=== PATIENT | male | born 1970 | race American Indian/Alaskan Native ===

== ENCOUNTER 2017-03-26 15:50 | Emergency (ER) | payer MEDICARE ==
[2017-03-26 18:01] LABS: Anion Gap 15 mmol/L; BUN/Creatinine Ratio 8.75; Blood Urea Nitrogen 7 mg/dL (9-20); Calcium 8.9 mg/dL (8.4-10.2); Carbon Dioxide 31 mmol/L (22-30); Chloride 95.1 mmol/L (98-107); Glucose 126 mg/dL (75-100); Potassium 3.2 mmol/L (3.6-5.0); Sodium 138 mmol/L (137-145)
[2017-03-26 19:48] LABS: Basophils % (Auto) 0.6 % (0.0-1.8); Eosinophils % (Auto) 0.3 % (0.0-4.3); Hemoglobin 14.7 gm/dl (11.8-15.2); Mean Corpuscular HGB Conc 33 % (32-34); Mean Corpuscular Hemoglobin 30 pg (28-32); Mean Corpuscular Volume 90 fl (84-94); Platelet Count 218 K/mm3 (140-440); Red Blood Count 4.88 M/mm3 (3.65-5.03); Red Cell Distribution Width 13.1 % (13.2-15.2); White Blood Count 10.5 K/mm3 (4.5-11.0)
[2017-03-26 22:17] VITALS: BP 133/72
[2017-03-26] MEDS ORDERED: K-DUR PO ONE (22:17)
[2017-03-26] MEDS ORDERED: DUONEB 0.5 MG-3 MG/3 ML SOLN IH ONE (22:31)
--- NOTE | 2017-03-26 22:36 | Emergency Department Report ---
HPI - General Chief Complaint: Dyspnea/Respdistress Time Seen by Provider: 03/26/17 22:16 - HPI HPI: This is a 46-year-old Afro-Stateless male who [facility] with complaints of increased fatigue, and ability to sleep well at night, falling asleep during "class" and possibly some wheezing. The patient is currently being seen [facility] the [facility] for his schizoaffective disorder. He says that his roommates have been telling him that he is snoring very loudly and having moments where he appears to have apnea. The nurse practitioner evaluated him today and felt that he sounded like he had some wheezing. Occasionally he does feel as if he has some wheezing or shortness of breath but denies any respiratory distress, chest pain, fever, back pain. He admits to having a sleep study done in the recent past that was positive for sleep apnea and the patient was started on either a CPAP or BiPAP machine. He also admits to noncompliance with using this machine at night to sleep. ED Past Medical Hx - Past Medical History Previous Medical History?: No - Surgical History Past Surgical History?: No - Social History Smoking Status: Never Smoker Substance Use Type: None - Medications Home Medications: Home Medications Medication Instructions Recorded Confirmed Last Taken Type ALBUTEROL Inhaler [ProAir HFA 2 puff IH QID PRN #1 inhalation 03/26/17 Unknown Rx Inhaler] Loratadine/Pseudoephedrine 1 tab PO DAILY #20 tablet 03/26/17 Unknown Rx [Claritin-D 24Hr] ED Review of Systems ROS: Stated complaint: DYSPNEA/DIFFICULTY STAYING AWAKE Other details as noted in HPI Comment: All other systems reviewed and negative Constitutional: other (fatigue). denies: chills, fever Eyes: denies: eye pain, eye discharge, vision change ENT: denies: ear pain, throat pain Respiratory: shortness of breath. denies: cough Cardiovascular: denies: chest pain, palpitations Gastrointestinal: denies: abdominal pain, nausea, diarrhea Genitourinary: denies: urgency, dysuria Musculoskeletal: denies: back pain, joint swelling, arthralgia Skin: denies: rash, lesions Neurological: denies: headache, weakness, paresthesias Physical Exam - Physical Exam Vital Signs: Vital Signs 03/26/17 03/26/17 17:04 22:16 Temperature 98.2 F 98.1 F Pulse Rate 93 H 76 Respiratory 18 16 Rate Blood Pressure 159/99 Blood Pressure 133/72 [Left] O2 Sat by Pulse 97 98 Oximetry Physical Exam: GENERAL: The patient is well-developed well-nourished. HEENT: Normocephalic. Atraumatic. Extraocular motions are intact. Patient has moist mucous membranes. Pupils equal reactive to light bilaterally. There is some boggy nasal mucosa. Oropharynx clear. Mallimpati of 3 NECK: Supple. Trachea is midline. CHEST/LUNGS: Clear to auscultation. No tachypnea or accessory muscle use. No cough heard during examination. There is no respiratory distress noted. HEART/CARDIOVASCULAR: Regular. There is no tachycardia. There is no gallop rub or murmur. ABDOMEN: Abdomen is soft, nontender. Patient has normal bowel sounds. There is no abdominal distention. SKIN: Skin is warm and dry. NEURO: The patient is awake, alert, and oriented. The patient is cooperative. The patient has no focal neurologic deficits. The patient has normal speech and gait. MUSCULOSKELETAL: There is no tenderness or deformity. There is no limitation range of motion. There is no evidence of acute injury. ED Course Vital Signs 03/26/17 03/26/17 17:04 22:16 Temperature 98.2 F 98.1 F Pulse Rate 93 H 76 Respiratory 18 16 Rate Blood Pressure 159/99 Blood Pressure 133/72 [Left] O2 Sat by Pulse 97 98 Oximetry ED Medical Decision Making - Lab Data Result diagrams: 03/26/17 19:36 03/26/17 17:25 - EKG Data -: EKG Interpreted by Me EKG shows normal: sinus rhythm, axis, intervals, QRS complexes, ST-T waves Rate: normal - EKG Data When compared to previous EKG there are: previous EKG unavailable Interpretation: normal EKG - Radiology Data Radiology results: image reviewed interpreted by me: Chest x-ray did not show any acute process. Heart is normal shape and size. No effusions. No pneumothorax. No signs of pneumonia seen. - Medical Decision Making This is a 46-year-old male presents [facility] the emergency department [facility] with complaint of poor sleep and daytime fatigue. There is also some concern for possible wheezing and/or intermittent shortness of breath. Patient's lungs are clear to auscultation and there is no signs of bronchospasm. EKG is normal without ST elevation PA, dysrhythmia or ischemia. Chest x-ray does not show any pneumonia, pneumothorax or pleural effusions or any acute process. Vital signs stable throughout his ED course including being afebrile and no hypoxia. Patient admits to noncompliance with his sleep apnea machine and his history of daytime fatigue appears consistent with this as well. Despite the lack of bronchospasm, the patient was given a breathing treatment to see if it helped his symptoms and/or complaints and it did. Patient was reevaluated multiple times for multiple hours and has remained stable. He has not had any chest pain or significant respiratory distress. He appears safe for discharge home at this time. At his request he was given a referral for ENT. He will be given an albuterol inhaler. He has been encouraged to start using the CPAP or BiPAP machine. He will return to the ER with any worsening of his symptoms or any acute distress. - Differential Diagnosis sleep apnea, asthma, bronchitis, pneumonia Critical Care Time: No Critical care attestation.: If time is entered above; I have spent that time in minutes in the direct care of this critically ill patient, excluding procedure time. ED Disposition Clinical Impression: History of sleep apnea, Nasal congestion Fatigue Qualifiers: Fatigue type: unspecified Qualified Code(s): R53.83 - Other fatigue Disposition: DISCHARGED TO HOME OR SELFCARE Is pt being admited?: No Condition: Stable Instructions: Snoring (ED), Fatigue (ED) Additional Instructions: Please start using your CPAP or BiPAP machine when you're sleeping at night. Follow-up with a primary care doctor as soon as possible. As requested, I referral for an ENT physician, Dr. Guardado and Dr shaye Brooke. Return to the emergency department with any worsening of your symptoms or any acute distress. Prescriptions: Loratadine/Pseudoephedrine [Claritin-D 24Hr] 1 tab PO DAILY #20 tablet Referrals: PRIMARY MD SHERRY [Primary Care Provider] - 3-5 Days BALTA GUARDADO MD [Staff Physician] - 3-5 Days ARI GARCIA MD [Staff Physician] - 3-5 Days Time of Disposition: 23:58
--- NOTE | 2017-03-27 07:31 | XRay Report ---
Chest 2 views: History: Shortness of breath. Findings: Normal cardiomediastinal silhouette. Trachea is midline. No consolidation, pneumothorax or pleural effusion. Impression: No acute cardiopulmonary findings.
== END 2017-03-27 00:12 | disposition home or self-care (01) ==
LOC: ED 15:50
DX: R53.83 Other fatigue (principal); R09.81 Nasal congestion
CPT/HCPCS: 36415; 71020; 80048; 84484; 85025; 93005; 93010; 94640